=== PATIENT | female | born 1955 | race Hispanic/Latino ===

== ENCOUNTER 2017-10-26 07:45 | Outpatient (CLI) | payer MEDICARE, MEDICAID | END 2017-10-26 07:46 | disposition home or self-care (01) | LOC: MRI 07:45 | PROVIDERS: ATTEND Internal Medicine Gastroenterology | DX: Z01.812 Encounter for preprocedural laboratory examination (principal); K75.81 Nonalcoholic steatohepatitis (NASH); K74.60 Unspecified cirrhosis of liver; K75.4 Autoimmune hepatitis; Z80.0 Family history of malignant neoplasm of digestive organs | CPT/HCPCS: 74183; 82565 ==

== ENCOUNTER 2017-11-10 08:26 | Outpatient (CLI) | payer MEDICARE, MEDICAID ==
--- NOTE | 2017-11-10 11:49 | MRI ---
MRI ABDOMEN WITH AND WITHOUT CONTRAST: Date: 11/10/17 HISTORY: Autoimmune hepatitis. Nonalcoholic steatosis. Epigastric pain. Cirrhosis. COMPARISON: CT abdomen and pelvis dated 12/11/11. FINDINGS: There is mild hepatic steatosis with hepatic fat fraction 10.2% and fat percentage 6.1%. Prior cholec ystectomy. Mild reservoir effect extrahepatic biliary system. Spleen mildly enlarged, measuring 13.5 cm in length. No significant varices are appreciated. Normal f low-void within the portal vein. Adrenal glands are unremarkable. There is a simple cyst anterior cortex interpolar right kidney measu ring 2.5 cm. No significant periportal edema. No significant irregular dilatation of the intrahepatic biliary duct s. No findings to suggest end-stage or autoimmune hepatitis. Small retroperitoneal periaortic lymph nodes. Aortic contour is nonaneurysmal in the abdomen. Main portal vein measures 15.0 mm. IMPRESSION: 1. Findings suggestive of portal hypertension with splenomegaly with dilatation of the main portal v ein, which has a normal flow-void. 2. No evidence of periportal edema or irregular intrahepatic biliary duct dilatation or beading. No evidence to suggest end-stage autoimmune hepatitis. 3. Small right renal cyst. 4. No intrahepatic or extrahepatic biliary dilatation with only mild reservoir effect of extrahepat ic biliary system from prior cholecystectomy. 5. Mild hepatic steatosis with hepatic fat fraction at 10.2% and hepatic fat percentage of 6.1%. POS: [facility]
[2017-11-10] MEDS ORDERED: Gadobenate Dimeglumine 529 MG/1 ML (20ML VIAL) ONE (16:14)
== END 2017-11-10 08:27 | disposition home or self-care (01) ==
LOC: TBSIIMAG 08:26
PROVIDERS: ATTEND Internal Medicine Gastroenterology
DX: K75.4 Autoimmune hepatitis (principal); R10.13 Epigastric pain; K74.60 Unspecified cirrhosis of liver; K75.81 Nonalcoholic steatohepatitis (NASH); R19.4 Change in bowel habit; Z80.0 Family history of malignant neoplasm of digestive organs; Z90.49 Acquired absence of other specified parts of digestive tract
CPT/HCPCS: 74183; A9579

== ENCOUNTER 2018-11-01 20:24 | Emergency (ER) | payer MEDICARE, MEDICAID | END 2018-11-01 21:59 | disposition home or self-care (01) | LOC: ERS 20:24 | DX: J01.90 Acute sinusitis, unspecified (principal); E03.9 Hypothyroidism, unspecified; I10 Essential (primary) hypertension; E11.9 Type 2 diabetes mellitus without complications; G43.909 Migraine, unspecified, not intractable, without status migrainosus; F32.9 Major depressive disorder, single episode, unspecified | CPT/HCPCS: 87804; 99283 ==